=== PATIENT | female | born 1990 | race Caucasian/White ===

== ENCOUNTER 2021-10-21 07:30 | Inpatient (IN) | payer OTHER ==
[~2021-10-21] VITALS: Ht 177.8 cm; Wt 123.8 kg
[2021-10-21 08:09] LABS: HEMOGLOBIN 11.5 gm/dl (12.3-15.3); RED BLOOD COUNT 3.78 M/UL (4.00-5.10); WHITE BLOOD COUNT 11.1 K/UL (4.5-11.0)
[2021-10-21] MEDS ORDERED: TRANDATE 100 M100 MG PO (08:18)
[2021-10-21] MEDS ORDERED: PRENATAL VITAM1 EAC8 PO (08:18)
[2021-10-21 08:25] LABS: BUN/CREATININE RATIO 6 (0-10)
[2021-10-22 03:26] LABS: HEMOGLOBIN 10.5 gm/dl (12.3-15.3)
[2021-10-22] MEDS ORDERED: IBUPROFEN800 MG PO (15:07)
[2021-10-22] MEDS ORDERED: COLACE100 MG PO (15:07)
[2021-10-22] MEDS ORDERED: HEMOCYTE324 MG PO (15:07)
[2021-10-22] MEDS ORDERED: PERCOCET 5/325 T1 EA PO (15:07)
== END 2021-10-22 17:30 | disposition home or self-care (01) | DRG 788 ==
LOC: OB 07:35
PROVIDERS: ADMIT Obstetrics & Gynecology
PROC: 4A1HXCZ Monitoring of Products of Conception, Cardiac Rate, External Approach (ICD-10-PCS; 2021-10-21)
PROC: 3E0234Z Introduction of Serum, Toxoid and Vaccine into Muscle, Percutaneous Approach (ICD-10-PCS; 2021-10-21)
PROC: 10D00Z1 Extraction of Products of Conception, Low, Open Approach (ICD-10-PCS; principal; 2021-10-21 07:30)
DX: O32.1XX0 Maternal care for breech presentation, not applicable or unspecified (principal); Z3A.37 37 weeks gestation of pregnancy; Z37.0 Single live birth; Z20.822 Contact with and (suspected) exposure to COVID-19; F41.9 Anxiety disorder, unspecified; F32.A Depression, unspecified; O11.4 Pre-existing hypertension with pre-eclampsia, complicating childbirth; O99.824 Streptococcus B carrier state complicating childbirth; Z82.49 Family history of ischemic heart disease and other diseases of the circulatory system; Z80.8 Family history of malignant neoplasm of other organs or systems; Z80.3 Family history of malignant neoplasm of breast; O69.81X0 Labor and delivery complicated by cord around neck, without compression, not applicable or unspecified; Z23 Encounter for immunization
CPT/HCPCS: 36415; 80053; 81001; 85014; 85018; 85025; 90471; 90715; C9113; J0690; J1170; J2370; J2405; J2590; J7120